=== PATIENT | male | born 1970 | race American Indian/Alaskan Native ===

== ENCOUNTER 2017-02-27 20:20 | Inpatient (IN) | payer SELFPAY ==
[2017-02-27] MEDS ORDERED: ASPIRIN PO ONE (20:48)
[2017-02-27 21:16] LABS: Basophils % (Auto) 0.1 % (0.0-1.8); Eosinophils # (Auto) 0.1 K/mm3 (0.0-0.4); Eosinophils % (Auto) 0.5 % (0.0-4.3); Hematocrit 26.2 % (35.5-45.6); Hemoglobin 9.2 gm/dl (11.8-15.2); Lymphocytes # (Auto) 1.6 K/mm3 (1.2-5.4); Lymphocytes % (Auto) 16.4 % (13.4-35.0); Mean Corpuscular HGB Conc 35 % (32-34); Mean Corpuscular Hemoglobin 47 pg (28-32); Monocytes % (Auto) 10.5 % (0.0-7.3); Platelet Count 328 K/mm3 (140-440); Red Blood Count 1.96 M/mm3 (3.65-5.03); Red Cell Distribution Width 16.6 % (13.2-15.2)
[2017-02-27 21:23] LABS: Mean Corpuscular Volume 134 fl (84-94)
[2017-02-27 21:29] LABS: Hemolysis Index 16
[2017-02-27 21:31] LABS: BUN/Creatinine Ratio 2; Blood Urea Nitrogen < 1 mg/dL (9-20)
[2017-02-27 21:33] LABS: Calcium 5.7 mg/dL (8.4-10.2)
[2017-02-27 21:47] LABS: Chol/HDL Ratio 3.42 %; HDL Cholesterol 38 mg/dL (40-59); LDL Cholesterol,Direct 70 mg/dL (50-130)
[2017-02-27] MEDS ORDERED: K-DUR PO ONE (22:51)
--- NOTE | 2017-02-27 22:59 | Emergency Department Report ---
ED Chest Pain HPI - General Chief Complaint: Chest Pain Stated Complaint: NUMBESS IN FACE,TIGHTNESS CHEST Time Seen by Provider: 02/27/17 22:40 Source: patient Mode of arrival: Ambulatory Limitations: No Limitations - History of Present Illness Initial Comments: This is a 47-year-old male presents to the emergency department with complaints of some chest tightness, facial numbness, cramping and discomfort in the legs, and sharp pains in his toes, it has been going on for the past few days. He denies any past medical history other than some alcohol dependence. He says that he drinks just about every day, around 5-6 beers. He denies any history of delirium tremens or withdrawal symptoms. He does not have a primary care physician. He has not taken anything for her symptoms prior to presentation. He denies any shortness of breath, fever, nausea, vomiting or diaphoresis. No recent travel or sick contacts at home. Severity scale (0 -10): 6 - Related Data Allergies Allergy/AdvReac Type Severity Reaction Status Date / Time No Known Allergies Allergy Verified 02/27/17 20:45 Heart Score - HEART Score History: Slightly suspicious EKG: Significant ST-depression Age: 45-65 Risk factors: No known risk factors Troponin: 1-3x normal limit HEART Score: 4 - Critical Actions Critical Actions: 4-6 pts:12-16.6% risk of adverse cardiac event. Should be admitted ED Review of Systems ROS: Stated complaint: NUMBESS IN FACE,TIGHTNESS CHEST Other details as noted in HPI Comment: All other systems reviewed and negative Constitutional: denies: chills, fever Eyes: denies: eye pain, eye discharge, vision change ENT: denies: ear pain, throat pain Respiratory: denies: cough, shortness of breath Cardiovascular: chest pain. denies: palpitations Gastrointestinal: denies: abdominal pain, nausea, diarrhea Genitourinary: denies: urgency, dysuria Musculoskeletal: myalgia. denies: back pain Skin: denies: rash, lesions Neurological: numbness. denies: headache ED Past Medical Hx - Past Medical History Previous Medical History?: Yes - Surgical History Past Surgical History?: Yes - Social History Smoking Status: Never Smoker Substance Use Type: Alcohol ED Physical Exam - General Limitations: No Limitations - Other Other exam information: GENERAL: The patient is well-developed well-nourished. HENT: Normocephalic. Atraumatic. Patient has moist mucous membranes. EYES: Extraocular motions are intact. Pupils equal reactive to light bilaterally. NECK: Supple. Trachea is midline. CHEST/LUNGS: Clear to auscultation. There is no respiratory distress noted. HEART/CARDIOVASCULAR: Regular. There is no tachycardia. There is no murmur. ABDOMEN: Abdomen is soft, nontender. Patient has normal bowel sounds. There is no abdominal distention. SKIN: Skin is warm and dry. NEURO: The patient is awake, alert, and oriented. The patient is cooperative. The patient has no focal neurologic deficits. The patient has normal speech. MUSCULOSKELETAL: There is no tenderness or deformity. There is no limitation range of motion. There is no evidence of acute injury. ED Course Vital Signs 02/27/17 02/27/17 20:45 23:10 Temperature 99.7 F H 99.3 F Pulse Rate 92 H 82 Respiratory 16 16 Rate Blood Pressure 144/84 Blood Pressure 143/90 [Left] O2 Sat by Pulse 97 100 Oximetry LUDY score - Ludy Score Age > 65: (0) No Aspirin use within the Past 7 Days: (0) No 3 or more CAD Risk Factors: (0) No 2 or more Angina events in past 24 hrs: (1) Yes Known CAD with more than 50% Stenosis: (0) No Elevated Cardiac Markers: (1) Yes ST Deviation Greater than 0.5mm: (0) No LUDY Score: 2 ED Medical Decision Making - Lab Data Result diagrams: 02/27/17 20:50 02/27/17 20:50 - EKG Data -: EKG Interpreted by Me EKG shows normal: sinus rhythm, axis, intervals (prolonged QT and QTC intervals) , QRS complexes (LVH), ST-T waves (T-wave inversion to the inferior and lateral leads, mild ST depression to lateral leads V4 through V6. No ST elevation) - EKG Data When compared to previous EKG there are: previous EKG unavailable Interpretation: other (sinus rhythm, prolonged QT and QTC intervals, T-wave inversions to the lateral and inferior leads, ST depressions in V4 through V6. No ST elevation) - Radiology Data Radiology results: image reviewed interpreted by me: Chest x-ray does not show any acute process. There are no pleural effusions, obvious pneumonia and there is no pneumothorax. - Medical Decision Making Patient has multiple complaints. He has multiple electrolyte abnormalities including hypocalcemia, hypokalemia, hypomagnesemia. EKG does not show ST elevation [place] but appears abnormal with some ST depression and T-wave inversions. May be secondary to the electrode abnormalities but may be secondary to his chest pain. First troponins have been elevated but are trending down. He was given potassium and magnesium supplementation. He will be admitted to the hospital for further evaluation and treatment is been accepted for admission by the hospitalist, Dr. Pierre. - Differential Diagnosis [place], electrolyte abnormalities, dehydration, alcohol abuse Critical Care Time: No Critical care attestation.: If time is entered above; I have spent that time in minutes in the direct care of this critically ill patient, excluding procedure time. ED Disposition Clinical Impression: Hypomagnesemia, Hypokalemia, Hypocalcemia, Elevated troponin, Abnormal EKG, Cramping of feet Chest pain Qualifiers: Chest pain type: unspecified Qualified Code(s): R07.9 - Chest pain, unspecified Disposition: OP ADMIT IP TO THIS HOSP Is pt being admited?: Yes Condition: Stable Instructions: Chest Pain (ED) Time of Disposition: 00:15
--- NOTE | 2017-02-27 23:18 | XRay Report ---
FINAL REPORT PROCEDURE: XR CHEST ROUTINE 2V TECHNIQUE: PA and lateral chest radiographs were obtained. CPT 99017 HISTORY: CP COMPARISON: No prior studies are available for comparison. FINDINGS: Heart: Normal. Mediastinum/Vessels: Normal. Lungs/Pleural space: Normal. Bony thorax: No acute osseous abnormality. Other: IMPRESSION: Normal examination.
[2017-02-27] MEDS: KCL 10MEQ/100ML 10 MEQ/100 ML BAG IV SCH (23:42)
[2017-02-27] MEDS ORDERED: NACL 0.9% 500 ML 500 ML ONE (23:44)
[2017-02-27] MEDS ORDERED: MAGNESIUM SULFATE 2GM/50ML 2 GM/50 ML BAG IV ONE (23:55)
[2017-02-28] MEDS: KCL 10MEQ/100ML 10 MEQ/100 ML BAG IV SCH (01:51)
[2017-02-28] MEDS ORDERED: MILK OF MAGNESIA PO PRN (02:01)
[2017-02-28] MEDS ORDERED: TYLENOL PO PRN (02:01)
[2017-02-28] MEDS ORDERED: DULCOLAX PR PRN (02:01)
[2017-02-28] MEDS ORDERED: MORPHINE IV PRN (02:01)
[2017-02-28] MEDS ORDERED: ZOFRAN IV PRN (02:01)
[2017-02-28 03:35] LABS: Creatine Kinase MB 8.3 ng/mL (0.0-4.0)
--- NOTE | 2017-02-28 03:43 | History and Physical Report ---
History of Present Illness Date of examination: 02/28/17 Date of admission: 02/28/17 02:10 History of present illness: 47-year-old man with no medical problem causing emergency room complaints of chest pain. Pain is in the epigastric area which started today, describes a pressure-like sensation, constant, intensity 5/10, nor radiation. Also complaining of left facial numbness. He denies nausea vomiting, shortness breath, diaphoresis or palpitation Review Of Systems: Constitutional: no weight loss Ears, eyes, nose, mouth and throat: no nasal congestion, no nasal discharge, no sinus pressure, blurry vision, diplopia Neck: No neck pain or rigidity. Cardiovascular: No palpitations Respiratory: No shortness of breath, cough Gastrointestinal: No abdominal pain, hematochezia Genitourinary : no dysuria, frequency , hematuria Musculoskeletal: no muscle ache Integumentary: no rash, no pruritis Neurological: no parathesias, focal weakness Endocrine: no cold or heat intolerance, no polyuria or polydipsia Hematologic/Lymphatic: no easy bruising, no easy bleeding, no gland swelling Allergic/Immunologic: no urticaria, no angioedema. PAST MEDICAL HISTORY: None PAST SURGICAL HISTORY: Achilles tendon repair FAMILY HISTORY: Hypertension SOCIAL HISTORY: Drinks at least 6 beers a day, no tobacco, drugs Medications and Allergies Allergies Allergy/AdvReac Type Severity Reaction Status Date / Time No Known Allergies Allergy Verified 02/27/17 20:45 Active Meds: Active Medications Acetaminophen (Tylenol) 650 mg PO Q4H PRN PRN Reason: Pain MILD(1-3)/Fever >100.5/[place] Bisacodyl (Dulcolax) 10 mg CA QDAY PRN PRN Reason: Constipation unrelieved by MOM Enoxaparin Sodium (Lovenox) 40 mg SUB-Q QDAY@1000 JACY Magnesium Hydroxide (Milk Of Magnesia) 30 ml PO Q4H PRN PRN Reason: Constipation Morphine Sulfate (Morphine) 2 mg IV Q4H PRN PRN Reason: Pain, Moderate (4-6) Ondansetron HCl (Zofran) 4 mg IV Q8H PRN PRN Reason: N/V unrelieved by Reglan Exam - Physical Exam Narrative exam: Gen. appearance: Patient lying in bed in no acute distress HEENT: Normocephalic/atraumatic, pupils equal round reactive to light, extra occular movement intact, no scleral icterus, no JVD or thyromegaly or nodule, neck is supple, mucous membrane moist, no erythema or exudate Heart: S1-S2, regular rate and rhythm Lungs: Clear to auscultation bilateral breathing comfortable Abdomen: Positive bowel sounds, nontender, nondistended, no organomegaly Extremities: No edema, cyanosis, clubbing Neuro:: Oriented 3 , cranial nerves II-12 intact, speech, motor intact Skin: No rash, nodules, warm dry - Constitutional Vitals: Temp Pulse Resp BP Pulse Ox 99.3 F 80 23 127/74 98 02/27/17 23:10 02/28/17 03:15 02/28/17 03:15 02/28/17 03:15 02/28/17 03:15 Results - Labs CBC & Chem 7: 02/27/17 20:50 02/27/17 20:50 Labs: Abnormal lab results 02/27/17 02/27/17 02/27/17 Range/Units 20:50 20:50 23:14 RBC 1.96 L (3.65-5.03) M/mm3 Hgb 9.2 L (11.8-15.2) gm/dl Hct 26.2 L (35.5-45.6) % MCV 134 H (84-94) fl MCH 47 H (28-32) pg MCHC 35 H (32-34) % RDW 16.6 H (13.2-15.2) % [place] % (Auto) 10.5 H (0.0-7.3) % [place]ance # 1.0 H (0.0-0.8) K/mm3 Seg Neutrophils % 72.5 H (40.0-70.0) % Potassium 2.2 L* (3.6-5.0) mmol/L Chloride 86.4 L (98-107) mmol/L Carbon Dioxide 38 H (22-30) mmol/L BUN < 1 L (9-20) mg/dL Creatinine 0.6 L (0.8-1.5) mg/dL Glucose 103 H (75-100) mg/dL Calcium 5.7 L* (8.4-10.2) mg/dL Magnesium (1.7-2.3) mg/dL CK-MB (CK-2) (0.0-4.0) ng/mL Troponin T 0.035 H 0.031 H (0.00-0.029) ng/mL HDL Cholesterol 38 L (40-59) mg/dL 02/27/17 02/28/17 Range/Units 23:14 02:14 RBC (3.65-5.03) M/mm3 Hgb (11.8-15.2) gm/dl Hct (35.5-45.6) % MCV (84-94) fl MCH (28-32) pg MCHC (32-34) % RDW (13.2-15.2) % Nance % (Auto) (0.0-7.3) % Nance # (0.0-0.8) K/mm3 Seg Neutrophils % (40.0-70.0) % Potassium (3.6-5.0) mmol/L Chloride (98-107) mmol/L Carbon Dioxide (22-30) mmol/L BUN (9-20) mg/dL Creatinine (0.8-1.5) mg/dL Glucose (75-100) mg/dL Calcium (8.4-10.2) mg/dL Magnesium 0.60 L* (1.7-2.3) mg/dL CK-MB (CK-2) 8.3 H (0.0-4.0) ng/mL Troponin T 0.032 H (0.00-0.029) ng/mL HDL Cholesterol (40-59) mg/dL - Imaging and Cardiology EKG: image reviewed Chest x-ray: image reviewed Assessment and Plan Assessment Chest pain, rule out ACS Severe hypokalemia Severe hypomagnesemia Low-grade fever Alcohol abuse Plan Admit to medicine Check cardiac enzymes,d-dimer, obtain stress test Repeat potassium, magnesium, check UA, blood cultures Start CIWA protocol with IV Ativan DVT prophylaxis
[2017-02-28] MEDS ORDERED: K-DUR PO ONE ×4 (03:44→14:23)
[2017-02-28] MEDS ORDERED: MAGNESIUM SULFATE 2GM/50ML 2 GM/50 ML BAG IV ONE ×2 (09:00→15:22)
[2017-02-28 09:20] LABS: Hemolysis Index 26
[2017-02-28 09:22] LABS: BUN/Creatinine Ratio 2; Blood Urea Nitrogen < 1 mg/dL (9-20)
[2017-02-28 09:26] LABS: Creatine Kinase MB 7.7 ng/mL (0.0-4.0)
[2017-02-28] MEDS ORDERED: LOVENOX SUB-Q SCH ×2 (10:00)
[2017-02-28 11:07] LABS: Hemolysis Index 4
[2017-02-28 11:11] LABS: BUN/Creatinine Ratio 2; Blood Urea Nitrogen < 1 mg/dL (9-20)
--- NOTE | 2017-02-28 14:34 | Progress Note ---
Assessment and Plan Assessment and plan: Patient is 47 yo man with a history of bilateral hearing loss with hearing aids in place who takes herbal medications. He started Ginkgo Biloba 2-3 days ago, vitamin B12. He has been off [place]'s Wort for over a month. He presented with chest pains. His magnesium was 0.6, potassium 2.2, CPK 18917. Patient denies any nausea vomiting or trauma. -Severe hypokalemia -Severe hypomagnesemia -Rhabdomyolysis, nontraumatic -Chest pain, atypical Plan: Replace potassium Replace magnesium Start Isotonic normal saline IV fluids with potassium additives Repeat potassium magnesium Serial CPKs Stress test once stable Consultation nephrology The high probability of a clinically significant, sudden or life threatening deterioration of the [neurologic,cardiac] system(s) required my full and direct attention, intervention and personal management. The aggregate critical care time was [36 ] minutes. This time is in addition to time spent performing reported procedures but includes the following: [x] Data Review and interpretation [x] Patient assessment and monitoring of vital signs [x] Documentation [x] Medication orders and management History Interval history: Patient was seen and examined. Follow-up on current diagnosis. Overnight uneventful. Patient denies any chest pain, shortness breath, nausea/vomiting or severe headaches. Imaging, nursing note, chart, labs and old chart reviewed. Discussed with patient. Hospitalist Physical - Physical exam Narrative exam: GEN: WDWN, NAD, AWAKE, ALERT, ORIENTATED 3 HEENT: NCAT, EOMI, PERRL, OP Clear NECK: supple, no adenopathy, no thyromegaly, no JVD CVS/HEART: RRR, NORMAL S1S2, NO JVD, pulses present bilaterally CHEST/LUNGS: CTA B, Symmetrical chest expansion, good air entry bilaterally GI/Abdomen: soft, NTND, good bowel sounds, no guarding or rebound /Bladder: no suprapubic tenderness, no CVA or paraspinal tenderness EXT/Skin: no c/c/e, no obvious rash MSK: FROM x 4 Neuro: CN 2-12 grossly intact except hearing, no new focal deficits Psych: calm - Constitutional Vitals: Temp Pulse Resp BP Pulse Ox 99.3 F 91 H 20 122/82 95 02/28/17 09:58 02/28/17 09:58 02/28/17 09:58 02/28/17 09:58 02/28/17 09:58 Results - Labs CBC & Chem 7: 02/27/17 20:50 02/28/17 10:13 Labs: Laboratory Last Values WBC 9.7 K/mm3 (4.5-11.0) 02/27/17 20:50 RBC 1.96 M/mm3 (3.65-5.03) L 02/27/17 20:50 Hgb 9.2 gm/dl (11.8-15.2) L 02/27/17 20:50 Hct 26.2 % (35.5-45.6) L 02/27/17 20:50 MCV 134 fl (84-94) H 02/27/17 20:50 MCH 47 pg (28-32) H 02/27/17 20:50 MCHC 35 % (32-34) H 02/27/17 20:50 RDW 16.6 % (13.2-15.2) H 02/27/17 20:50 Plt Count 328 K/mm3 (140-440) 02/27/17 20:50 Lymph % (Auto) 16.4 % (13.4-35.0) 02/27/17 20:50 [place] % (Auto) 10.5 % (0.0-7.3) H 02/27/17 20:50 Eos % (Auto) 0.5 % (0.0-4.3) 02/27/17 20:50 Baso % (Auto) 0.1 % (0.0-1.8) 02/27/17 20:50 Lymph # 1.6 K/mm3 (1.2-5.4) 02/27/17 20:50 [place] # 1.0 K/mm3 (0.0-0.8) H 02/27/17 20:50 Eos # 0.1 K/mm3 (0.0-0.4) 02/27/17 20:50 Baso # 0.0 K/mm3 (0.0-0.1) 02/27/17 20:50 Seg Neutrophils % 72.5 % (40.0-70.0) H 02/27/17 20:50 Seg Neutrophils # 7.0 K/mm3 (1.8-7.7) 02/27/17 20:50 D-Dimer < 135 ng/mlDDU (0-234) 02/28/17 07:57 Sodium 147 mmol/L (137-145) H 02/28/17 10:13 Potassium 2.1 mmol/L (3.6-5.0) L* 02/28/17 10:13 Chloride 93.4 mmol/L (98-107) L 02/28/17 10:13 Carbon Dioxide 38 mmol/L (22-30) H 02/28/17 10:13 Anion Gap 18 mmol/L 02/28/17 10:13 BUN < 1 mg/dL (9-20) L 02/28/17 10:13 Creatinine 0.6 mg/dL (0.8-1.5) L 02/28/17 10:13 Estimated GFR > 60 ml/min 02/28/17 10:13 BUN/Creatinine Ratio 2 % 02/28/17 10:13 Glucose 95 mg/dL (75-100) 02/28/17 10:13 Calcium 6.0 mg/dL (8.4-10.2) L 02/28/17 10:13 Magnesium 0.60 mg/dL (1.7-2.3) L* 02/27/17 23:14 Total Creatine Kinase 50099 units/L (55-170) H 02/28/17 07:57 CK-MB (CK-2) 7.7 ng/mL (0.0-4.0) H 02/28/17 07:57 CK-MB (CK-2) Rel Index 0.0 (0-4) 02/28/17 07:57 Troponin T 0.043 ng/mL (0.00-0.029) H D 02/28/17 07:57 Triglycerides 112 mg/dL (2-149) 02/27/17 20:50 Cholesterol 130 mg/dL (50-199) 02/27/17 20:50 LDL Cholesterol Direct 70 mg/dL (50-130) 02/27/17 20:50 HDL Cholesterol 38 mg/dL (40-59) L 02/27/17 20:50 Cholesterol/HDL Ratio 3.42 % 02/27/17 20:50
[2017-02-28] MEDS ORDERED: HALDOL IV PRN (14:42)
[2017-02-28] MEDS ORDERED: ATIVAN IV PRN ×3 (14:42)
[2017-02-28] MEDS ORDERED: NS/KCL 20MEQ 20 MEQ/1,000 ML BAG IV SCH (15:00)
[2017-02-28] MEDS ORDERED: NACL 0.9% 1000 ML 1,000 ML with KCL 20 MEQ IV SCH (15:00)
[2017-02-28] MEDS: K-DUR PO SCH ×4 (16:56→22:59)
--- NOTE | 2017-02-28 18:28 | Consultation ---
History of Present Illness - Reason for Consult Consult date: 02/28/17 hypernatremia, hypokalemia Requesting physician: LARA CONNORS - History of Present Illness This is a 47-year-old man with no medical problem causing emergency room complaints of chest pain. Pain is in the epigastric area which started today, Also complaining of frequent episodes of diarrhea/loose BMs for the last few weeks. He denies fever, chills, nausea vomiting, shortness breath, diaphoresis or palpitation, dysuria. labs showed significant electrolyte imbalance incl. hypokalemia, hypomagnesemia and hypernatremia for which renal consult is requested. pt denies recent diuretic use, illicit drug abuse, however reports that he drinks just about every day, around 5-6 beers also has been recently taking gingko bilboa. pt also found to have significant rhabdomyolysis with CK > [address]. pt denies recent heavy exercise or significant muscle pain. Past History Past Medical History: No medical history Past Surgical History: No surgical history Social history: no significant social history. denies: smoking, alcohol abuse, prescription drug abuse, IV drug use Family history: no significant family history Medications and Allergies Allergies Allergy/AdvReac Type Severity Reaction Status Date / Time No Known Allergies Allergy Verified 02/27/17 20:45 Active Meds: Active Medications Acetaminophen (Tylenol) 650 mg PO Q4H PRN PRN Reason: Pain MILD(1-3)/Fever >100.5/[place]LIN Haloperidol Lactate (Haldol) 5 mg IV Q1H PRN PRN Reason: Unrespon. to mult. doses BZD's Potassium Chloride/Sodium Chloride (Ns/Kcl 20meq) 20 meq in 1,000 mls @ 125 mls /hr IV DIRECT JACY Lorazepam (Ativan) 2 mg IV Q1H PRN PRN Reason: CIWA-Ar 8-15 Lorazepam (Ativan) 4 mg IV Q1H PRN PRN Reason: CIWA-Ar 16-25 Lorazepam (Ativan) 4 mg IV Q15MIN PRN PRN Reason: CIWA-Ar >25 Magnesium Hydroxide (Milk Of Magnesia) 30 ml PO Q4H PRN PRN Reason: Constipation Morphine Sulfate (Morphine) 2 mg IV Q4H PRN PRN Reason: Pain, Moderate (4-6) Potassium Chloride (K-Dur) 40 meq PO Q2H JACY Last Admin: 02/28/17 18:17 Dose: 40 meq Review of Systems All systems: negative Constitutional: weakness, malaise Gastrointestinal: abdominal pain, diarrhea Exam - Vital Signs Vital signs: Vital Signs Temp Pulse Resp BP Pulse Ox 99.7 F H 92 H 16 144/84 97 02/27/17 20:45 02/27/17 20:45 02/27/17 20:45 02/27/17 20:45 02/27/17 20:45 - General Appearance General appearance: well-developed, well-nourished, appears stated age EENT: ATNC, PERRL, mucous membranes moist Neck: Present: neck supple Respiratory: Clear to Ascultation Heart: regular, S1S2 Gastrointestinal: Present: normoactive bowel sounds Integumentary: no rash, other (no edema ) Neurologic: no focal deficit, alert and oriented x3, strength 5/5, CN 3-12 intact Psychiatric: mood/affect appropriate, cooperative Results - Lab Results 02/27/17 20:50 02/28/17 10:13 Most recent lab results Calcium 6.0 mg/dL (8.4-10.2) L 02/28/17 10:13 Magnesium 0.60 mg/dL (1.7-2.3) L* 02/27/17 23:14 Laboratory Tests 02/27/17 02/28/17 02/28/17 20:50 02:14 07:57 Total Creatine Kinase 42526 H 83138 H CK-MB (CK-2) 8.3 H 7.7 H CK-MB (CK-2) Rel Index 0.0 0.0 Troponin T 0.035 H 0.032 H Triglycerides 112 Cholesterol 130 LDL Cholesterol Direct 70 HDL Cholesterol 38 L Cholesterol/HDL Ratio 3.42 Assessment and Plan - Patient Problems (1) Rhabdomyolysis Current Visit: Yes Status: Acute Plan to address problem: cont IVF with NS at 125ml/hr, check serial CPKs. Etiology of rhabdo unclear, possibly due to chronic hypokalemia? (2) Hypokalemia Current Visit: Yes Status: Acute Plan to address problem: most likely due to chronic diarrhea/GI loss. however will check TTKG to rule out renal wasting and also check urine AG. cont aggressive K supplementation with KCl/KDur to target K >4. Mg supplementation ongoing. (3) Hypomagnesemia Current Visit: Yes Status: Acute Plan to address problem: cont Mg supplementation (4) Hypocalcemia Current Visit: Yes Status: Acute Plan to address problem: start ca gluconate 2g IVSS
[2017-02-28] MEDS ORDERED: CALCIUM GLUCONATE 2,000 MG in NACL 0.9% 100 ML IV ONE (18:38)
[2017-02-28] MEDS ORDERED: CALCIUM CHLORIDE 2,000 MG in NACL 0.9% 100 ML IV ONE (20:00)
[2017-02-28 23:10] LABS: Bacteria,Urine 1+ /HPF (Negative); Bilirubin,Urine NEG (Negative); Blood,Urine MOD (Negative); Color,Urine Yellow (Yellow); Creatinine,Urine 82.5 mg/dL (0.1-20.0); Mucus,Urine FEW /HPF; Nitrite,Urine NEG (Negative); Potassium, Urine 7.4 mmol/L; Protein,Urine <15 mg/dL mg/dL (Negative)
[2017-03-01] MEDS: K-DUR PO SCH ×4 (00:58→06:48)
[2017-03-01 06:40] LABS: Basophils % (Auto) 0.3 % (0.0-1.8); Eosinophils # (Auto) 0.1 K/mm3 (0.0-0.4); Eosinophils % (Auto) 1.5 % (0.0-4.3); Hemoglobin 8.4 gm/dl (11.8-15.2); Lymphocytes # (Auto) 1.2 K/mm3 (1.2-5.4); Lymphocytes % (Auto) 17.7 % (13.4-35.0); Mean Corpuscular HGB Conc 35 % (32-34); Mean Corpuscular Hemoglobin 48 pg (28-32); Monocytes # (Auto) 0.9 K/mm3 (0.0-0.8); Monocytes % (Auto) 12.6 % (0.0-7.3); Platelet Count 330 K/mm3 (140-440); Red Blood Count 1.75 M/mm3 (3.65-5.03); Red Cell Distribution Width 16.1 % (13.2-15.2)
[2017-03-01 06:48] LABS: Mean Corpuscular Volume 137 fl (84-94)
[2017-03-01 07:29] LABS: Alanine Aminotransferase 60 units/L (7-56); Calcium 6.9 mg/dL (8.4-10.2); Hemolysis Index 5
[2017-03-01 07:31] LABS: Magnesium 1.7 mg/dL (1.7-2.3)
[2017-03-01 07:33] LABS: BUN/Creatinine Ratio 2; Blood Urea Nitrogen < 1 mg/dL (9-20)
[2017-03-01] MEDS ORDERED: K-DUR PO ONE (08:31)
--- NOTE | 2017-03-01 09:26 | Progress Note ---
Assessment and Plan - Patient Problems (1) Rhabdomyolysis Current Visit: Yes Status: Acute Plan to address problem: switch IVF to D5 1/2 NS + Kcl at 150mlhr given hypernatremia. check serial CPKs. Etiology of rhabdo unclear, possibly due to chronic hypokalemia? (2) Hypokalemia Current Visit: Yes Status: Acute Plan to address problem: most likely due to chronic diarrhea/GI loss. TTKG however >6, renal wasting in the setting of hypomagnesemia may contribute to hypokalemia. cont aggressive K/ Mg supplementation with KCl/KDur to target K >4. Mg supplementation ongoing. (3) Hypomagnesemia Current Visit: Yes Status: Acute Plan to address problem: improved (4) Hypocalcemia Current Visit: Yes Status: Acute Plan to address problem: given Ca chloride 2g IVSS, improving Subjective Date of service: 03/01/17 Principal diagnosis: hypokalemia Interval history: Pt awake, alert, in NAD Objective - Vital Signs Vital signs: Vital Signs - 12hr 02/28/17 02/28/17 03/01/17 22:00 23:49 03:00 Temperature 98.6 F Pulse Rate 87 80 Respiratory 20 Rate Blood Pressure 136/85 O2 Sat by Pulse 99 98 Oximetry 03/01/17 04:59 Temperature 99.1 F Pulse Rate 84 Respiratory 18 Rate Blood Pressure 138/91 O2 Sat by Pulse 97 Oximetry - General Appearance General appearance: well-developed, well-nourished, appears stated age EENT: ATNC, PERRL, mucous membranes moist Neck: no JVD Respiratory: Present: Clear to Ascultation Cardiology: regular, S1S2 Gastrointestinal: normoactive bowel sounds Integumentary: no rash, other (no edema ) Neurologic: no focal deficit, alert and oriented x3, strength 5/5, CN 3-12 intact Psychiatric: mood/affect appropriate, cooperative - Lab 03/01/17 06:04 03/01/17 06:04 Most recent lab results Calcium 6.9 mg/dL (8.4-10.2) L 03/01/17 06:04 Magnesium 1.70 mg/dL (1.7-2.3) 03/01/17 06:04 Urine Creatinine 82.5 mg/dL (0.1-20.0) H 02/28/17 Unknown Urine Sodium 40 mmol/L 02/28/17 Unknown
[2017-03-01] MEDS: D5W/0.45% NACL/KCL 20 MEQ 20 MEQ/1,000 ML BAG IV SCH ×2 (10:46→18:10)
--- NOTE | 2017-03-01 13:30 | Progress Note ---
Assessment and Plan Assessment and plan: Patient is 47 yo man with a history of alcohol abuse and bilateral hearing loss with hearing aids in place who takes herbal medications. He started Ginkgo Biloba 2-3 days ago, vitamin B12. He has been off [place] Wort for over a month. He presented with chest pains. His magnesium was 0.6, potassium 2.2, CPK 30468. Patient denies any nausea vomiting or trauma. -Severe hypokalemia -Severe hypomagnesemia -Rhabdomyolysis, nontraumatic -Chest pain, atypical -Alcohol abuse, on ciwa, no signs of withdrawal at this time. Plan: Replace potassium Replace magnesium Start Isotonic normal saline IV fluids with potassium additives Repeat potassium magnesium Serial CPKs Stress test once stable Consultation nephrology He is currently threatening leave AMA, new job starts Friday. Counseling done. Stress to hold until CPK levels and rhabdomyolysis improves History Interval history: Patient was seen and examined. Follow-up on current diagnosis. Overnight uneventful. Patient denies any chest pain, shortness breath, nausea/vomiting or severe headaches. Imaging, nursing note, chart, labs and old chart reviewed. Discussed with patient. Hospitalist Physical - Physical exam Narrative exam: GEN: WDWN, NAD, AWAKE, ALERT, ORIENTATED 3 HEENT: NCAT, EOMI, PERRL, OP Clear NECK: supple, no adenopathy, no thyromegaly, no JVD CVS/HEART: RRR, NORMAL S1S2, NO JVD, pulses present bilaterally CHEST/LUNGS: CTA B, Symmetrical chest expansion, good air entry bilaterally GI/Abdomen: soft, NTND, good bowel sounds, no guarding or rebound /Bladder: no suprapubic tenderness, no CVA or paraspinal tenderness EXT/Skin: no c/c/e, no obvious rash MSK: FROM x 4 Neuro: CN 2-12 grossly intact except hearing, no new focal deficits Psych: calm - Constitutional Vitals: Temp Pulse Resp BP Pulse Ox 97.7 F 82 20 148/99 100 03/01/17 12:50 03/01/17 12:50 03/01/17 12:50 03/01/17 12:50 03/01/17 12:50 Results - Labs CBC & Chem 7: 03/01/17 06:04 03/01/17 06:04 Labs: Laboratory Last Values WBC 6.9 K/mm3 (4.5-11.0) 03/01/17 06:04 RBC 1.75 M/mm3 (3.65-5.03) L 03/01/17 06:04 Hgb 8.4 gm/dl (11.8-15.2) L 03/01/17 06:04 Hct 24.0 % (35.5-45.6) L 03/01/17 06:04 MCV 137 fl (84-94) H 03/01/17 06:04 MCH 48 pg (28-32) H 03/01/17 06:04 MCHC 35 % (32-34) H 03/01/17 06:04 RDW 16.1 % (13.2-15.2) H 03/01/17 06:04 Plt Count 330 K/mm3 (140-440) 03/01/17 06:04 Lymph % (Auto) 17.7 % (13.4-35.0) 03/01/17 06:04 [place] % (Auto) 12.6 % (0.0-7.3) H 03/01/17 06:04 Eos % (Auto) 1.5 % (0.0-4.3) 03/01/17 06:04 Baso % (Auto) 0.3 % (0.0-1.8) 03/01/17 06:04 Lymph # 1.2 K/mm3 (1.2-5.4) 03/01/17 06:04 [place] # 0.9 K/mm3 (0.0-0.8) H 03/01/17 06:04 Eos # 0.1 K/mm3 (0.0-0.4) 03/01/17 06:04 Baso # 0.0 K/mm3 (0.0-0.1) 03/01/17 06:04 Seg Neutrophils % 67.9 % (40.0-70.0) 03/01/17 06:04 Seg Neutrophils # 4.7 K/mm3 (1.8-7.7) 03/01/17 06:04 D-Dimer < 135 ng/mlDDU (0-234) 02/28/17 07:57 Sodium 149 mmol/L (137-145) H 03/01/17 06:04 Potassium 3.4 mmol/L (3.6-5.0) L D 03/01/17 06:04 Chloride 103.4 mmol/L (98-107) 03/01/17 06:04 Carbon Dioxide 35 mmol/L (22-30) H 03/01/17 06:04 Anion Gap 14 mmol/L 03/01/17 06:04 BUN < 1 mg/dL (9-20) L 03/01/17 06:04 Creatinine 0.5 mg/dL (0.8-1.5) L 03/01/17 06:04 Estimated GFR > 60 ml/min 03/01/17 06:04 BUN/Creatinine Ratio 2 % 03/01/17 06:04 Glucose 98 mg/dL (75-100) 03/01/17 06:04 Osmolality 315 Mosm/kg 03/01/17 06:04 Calcium 6.9 mg/dL (8.4-10.2) L 03/01/17 06:04 Magnesium 1.70 mg/dL (1.7-2.3) 03/01/17 06:04 Total Bilirubin 1.50 mg/dL (0.1-1.2) H 03/01/17 06:04 AST 201 units/L (5-40) H 03/01/17 06:04 ALT 60 units/L (7-56) H 03/01/17 06:04 Alkaline Phosphatase 65 units/L (35-129) 03/01/17 06:04 Total Creatine Kinase 27036 units/L (55-170) H 03/01/17 06:04 CK-MB (CK-2) 7.7 ng/mL (0.0-4.0) H 02/28/17 07:57 CK-MB (CK-2) Rel Index 0.0 (0-4) 02/28/17 07:57 Troponin T 0.043 ng/mL (0.00-0.029) H D 02/28/17 07:57 Total Protein 5.1 g/dL (6.3-8.2) L 03/01/17 06:04 Albumin 3.0 g/dL (3.9-5) L 03/01/17 06:04 Albumin/Globulin Ratio 1.4 % 03/01/17 06:04 Triglycerides 112 mg/dL (2-149) 02/27/17 20:50 Cholesterol 130 mg/dL (50-199) 02/27/17 20:50 LDL Cholesterol Direct 70 mg/dL (50-130) 02/27/17 20:50 HDL Cholesterol 38 mg/dL (40-59) L 02/27/17 20:50 Cholesterol/HDL Ratio 3.42 % 02/27/17 20:50 Urine Color Yellow (Yellow) 02/28/17 Unknown Urine Turbidity Clear (Clear) 02/28/17 Unknown Urine pH 6.0 (5.0-7.0) 02/28/17 Unknown Ur Specific [place] 1.006 (1.003-1.030) 02/28/17 Unknown Urine Protein <15 mg/dl mg/dL (Negative) 02/28/17 Unknown Urine Glucose (UA) Neg mg/dL (Negative) 02/28/17 Unknown Urine Ketones Neg mg/dL (Negative) 02/28/17 Unknown Urine Blood Mod (Negative) 02/28/17 Unknown Urine Nitrite Neg (Negative) 02/28/17 Unknown Urine Bilirubin Neg (Negative) 02/28/17 Unknown Urine Urobilinogen 4.0 mg/dL (<2.0) 02/28/17 Unknown Ur Leukocyte Esterase Neg (Negative) 02/28/17 Unknown Urine WBC (Auto) 0.0 /HPF (0.0-6.0) 02/28/17 Unknown Urine RBC (Auto) 1.0 /HPF (0.0-6.0) 02/28/17 Unknown Urine Bacteria (Auto) 1+ /HPF (Negative) 02/28/17 Unknown Urine Mucus Few /HPF 02/28/17 Unknown Urine Osmolality 164 Mosm/kg 02/28/17 Unknown Urine Creatinine 82.5 mg/dL (0.1-20.0) H 02/28/17 Unknown Urine Sodium 40 mmol/L 02/28/17 Unknown Urine Potassium 7.40 mmol/L 02/28/17 Unknown Urine Chloride 17.8 mmolL (110-250) L 02/28/17 Unknown
--- NOTE | 2017-03-01 13:34 | Discharge Summary ---
Providers - Providers Date of Admission: 02/28/17 02:10 Date of discharge: 03/02/17 Attending physician: LARA CONNORS 02/28/17 14:36 Consult to Physician [CONS] Routine Consulting Provider: JAY BAUER Reason For Exam: severe electrolyte imbalance, rhabdo Place consult to:: Dr. Bauer Notified:: Sofía GREENBERG Phone number called:: Was contact made?: Yes If yes, spoke with:: Jazmín-office Time called:: 16:09 Primary care physician: LATONIA SCOTT Hospitalization Condition: Stable Hospital course: Patient is 47 yo man with a history of alcohol abuse and bilateral hearing loss with hearing aids in place who takes herbal medications. He started Ginkgo Biloba 2-3 days ago, vitamin B12. He has been off [place] Wort for over a month. He presented with chest pains. His magnesium was 0.6, potassium 2.2, CPK 37605. Patient denies any nausea vomiting or trauma. -Severe hypokalemia -Severe hypomagnesemia -Rhabdomyolysis, nontraumatic -Chest pain, atypical -Alcohol abuse, on ciwa, no signs of withdrawal at this time. Plan: Replace potassium Replace magnesium Start Isotonic normal saline IV fluids with potassium additives Repeat potassium magnesium Serial CPKs Stress test once stable Consultation nephrology He is currently threatening leave , new job starts Friday. Counseling done. Stress to hold until CPK levels and rhabdomyolysis improves Disposition: DC-07 LEFT AGAINST MED ADVICE Time spent for discharge: 35 min Core Measure Documentation - Palliative Care Palliative Care/ Comfort Measures: Not Applicable - Core Measures Any of the following diagnoses?: none - VTE Discharge Requirements Deep Vein Thrombosis/Pulmonary Embolism Present on Admission: No Has pt received <5 days of overlap therapy or INR<2.0: No Anticoagulant overlap therapy prescribed at discharge: No Contraindication No Overlap Therapy order at DC: Not Indicated Exam - Physical Exam Narrative exam: GEN: WDWN, NAD, AWAKE, ALERT, ORIENTATED 3 HEENT: NCAT, EOMI, PERRL, OP Clear NECK: supple, no adenopathy, no thyromegaly, no JVD CVS/HEART: RRR, NORMAL S1S2, NO JVD, pulses present bilaterally CHEST/LUNGS: CTA B, Symmetrical chest expansion, good air entry bilaterally GI/Abdomen: soft, NTND, good bowel sounds, no guarding or rebound /Bladder: no suprapubic tenderness, no CVA or paraspinal tenderness EXT/Skin: no c/c/e, no obvious rash MSK: FROM x 4 Neuro: CN 2-12 grossly intact except hearing, no new focal deficits Psych: calm - Constitutional Vitals: Temp Pulse Resp BP Pulse Ox 97.7 F 82 20 148/99 100 03/01/17 12:50 03/01/17 12:50 03/01/17 12:50 03/01/17 12:50 03/01/17 12:50 Plan Activity: other (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 Kendall Donnelly Follow up with: LATONIA SCOTT MD [Primary Care Provider] - 7 Days KENDALL DONNELLY MD [Staff Physician] - 7 Days Prescriptions: RX: Magnesium Oxide [Mag-Ox] 400 mg PO TID #30 day RX: Potassium Chloride 20 meq PO BID #60 tablet.er RX: Thiamine [Vitamin B-1] 100 mg PO QDAY #30 tablet
[2017-03-02 07:49] LABS: Calcium 6.4 mg/dL (8.4-10.2); Hemolysis Index 12
[2017-03-02 08:00] LABS: BUN/Creatinine Ratio 2; Blood Urea Nitrogen < 1 mg/dL (9-20)
[2017-03-02 09:02] VITALS: BP 165/97
[2017-03-02] MEDS ORDERED: K-DUR PO ONE ×2 (10:00→16:00)
--- NOTE | 2017-03-02 10:09 | Progress Note ---
Assessment and Plan - Patient Problems (1) Rhabdomyolysis Current Visit: Yes Status: Acute Plan to address problem: recommend IVF to D5 1/2 NS + Kcl at 150ml/hr, check serial CPKs. Etiology of rhabdo unclear, possibly due to chronic hypokalemia? pt instructed to increase oral hydration to increase Urine output > 2-3L/day given persistently elevated CPK (2) Hypokalemia Current Visit: Yes Status: Acute Plan to address problem: most likely due to chronic diarrhea/GI loss. TTKG however >6, renal wasting in the setting of hypomagnesemia may contribute to hypokalemia. cont aggressive K/ Mg supplementation with KCl/KDur to target K >4. Mg supplementation ongoing. (3) Hypomagnesemia Current Visit: Yes Status: Acute Plan to address problem: improved (4) Hypocalcemia Current Visit: Yes Status: Acute Plan to address problem: given Ca chloride 2g IVSS, improving Subjective Date of service: 03/02/17 Principal diagnosis: hypokalemia Interval history: Pt awake, alert, in NAD. states that he has to leave against medical advice due to work. Objective - Vital Signs Vital signs: Vital Signs - 12hr 03/02/17 03/02/17 03/02/17 00:47 00:52 05:49 Temperature 99.2 F 99.2 F Pulse Rate 84 92 H 93 H Respiratory 18 18 Rate Blood Pressure 160/104 149/97 Blood Pressure [Left] O2 Sat by Pulse 98 97 Oximetry 03/02/17 03/02/17 07:46 09:01 Temperature 99.0 F Pulse Rate 73 Respiratory 20 Rate Blood Pressure Blood Pressure 165/97 [Left] O2 Sat by Pulse 99 97 Oximetry - General Appearance General appearance: well-developed, well-nourished, appears stated age EENT: ATNC, PERRL, mucous membranes moist Neck: no JVD Respiratory: Present: Clear to Ascultation Cardiology: regular, S1S2 Gastrointestinal: normoactive bowel sounds Integumentary: no rash, other (no edema ) Neurologic: no focal deficit, alert and oriented x3, strength 5/5, CN 3-12 intact Psychiatric: mood/affect appropriate, cooperative - Lab 03/01/17 06:04 03/02/17 07:07 Most recent lab results Calcium 6.4 mg/dL (8.4-10.2) L 03/02/17 07:07 Magnesium 1.70 mg/dL (1.7-2.3) 03/01/17 06:04 Urine Creatinine 82.5 mg/dL (0.1-20.0) H 02/28/17 Unknown Urine Sodium 40 mmol/L 02/28/17 Unknown
--- NOTE | 2017-03-02 12:56 | Progress Note ---
Assessment and Plan Assessment and plan: Patient is 47 yo man with a history of alcohol abuse and bilateral hearing loss with hearing aids in place who takes herbal medications. He started Ginkgo Biloba 2-3 days ago, vitamin B12. He has been off [place]'s Wort for over a month. He presented with chest pains. His magnesium was 0.6, potassium 2.2, CPK 17458. Patient denies any nausea vomiting or trauma. -Severe hypokalemia -Severe hypomagnesemia -Rhabdomyolysis, nontraumatic -Chest pain, atypical -Alcohol abuse, on ciwa, no signs of withdrawal at this time. Plan: Replace potassium Replace magnesium Start Isotonic normal saline IV fluids with potassium additives Repeat potassium magnesium Serial CPKs Stress test once stable Consultation nephrology He is currently threatening leave AMA, new job starts Friday. Counseling done. Stress to hold until CPK levels and rhabdomyolysis improves replace potassium, his ivf were off, ?how long no IVFs, cpk increased History Interval history: Patient was seen and examined. Follow-up on current diagnosis. Overnight uneventful. Patient denies any chest pain, shortness breath, nausea/vomiting or severe headaches. Imaging, nursing note, chart, labs and old chart reviewed. Discussed with patient. Hospitalist Physical - Physical exam Narrative exam: GEN: WDWN, NAD, AWAKE, ALERT, ORIENTATED 3 HEENT: NCAT, EOMI, PERRL, OP Clear NECK: supple, no adenopathy, no thyromegaly, no JVD CVS/HEART: RRR, NORMAL S1S2, NO JVD, pulses present bilaterally CHEST/LUNGS: CTA B, Symmetrical chest expansion, good air entry bilaterally GI/Abdomen: soft, NTND, good bowel sounds, no guarding or rebound /Bladder: no suprapubic tenderness, no CVA or paraspinal tenderness EXT/Skin: no c/c/e, no obvious rash MSK: FROM x 4 Neuro: CN 2-12 grossly intact except hearing, no new focal deficits Psych: calm - Constitutional Vitals: Temp Pulse Resp BP Pulse Ox 99.0 F 73 20 165/97 97 03/02/17 09:01 03/02/17 09:01 03/02/17 09:01 03/02/17 09:01 03/02/17 09:01 Results - Labs CBC & Chem 7: 03/01/17 06:04 03/02/17 07:07 Labs: Laboratory Last Values WBC 6.9 K/mm3 (4.5-11.0) 03/01/17 06:04 RBC 1.75 M/mm3 (3.65-5.03) L 03/01/17 06:04 Hgb 8.4 gm/dl (11.8-15.2) L 03/01/17 06:04 Hct 24.0 % (35.5-45.6) L 03/01/17 06:04 MCV 137 fl (84-94) H 03/01/17 06:04 MCH 48 pg (28-32) H 03/01/17 06:04 MCHC 35 % (32-34) H 03/01/17 06:04 RDW 16.1 % (13.2-15.2) H 03/01/17 06:04 Plt Count 330 K/mm3 (140-440) 03/01/17 06:04 Lymph % (Auto) 17.7 % (13.4-35.0) 03/01/17 06:04 [place] % (Auto) 12.6 % (0.0-7.3) H 03/01/17 06:04 Eos % (Auto) 1.5 % (0.0-4.3) 03/01/17 06:04 Baso % (Auto) 0.3 % (0.0-1.8) 03/01/17 06:04 Lymph # 1.2 K/mm3 (1.2-5.4) 03/01/17 06:04 [place] # 0.9 K/mm3 (0.0-0.8) H 03/01/17 06:04 Eos # 0.1 K/mm3 (0.0-0.4) 03/01/17 06:04 Baso # 0.0 K/mm3 (0.0-0.1) 03/01/17 06:04 Seg Neutrophils % 67.9 % (40.0-70.0) 03/01/17 06:04 Seg Neutrophils # 4.7 K/mm3 (1.8-7.7) 03/01/17 06:04 D-Dimer < 135 ng/mlDDU (0-234) 02/28/17 07:57 Sodium 145 mmol/L (137-145) 03/02/17 07:07 Potassium 3.0 mmol/L (3.6-5.0) L 03/02/17 07:07 Chloride 101.7 mmol/L (98-107) 03/02/17 07:07 Carbon Dioxide 28 mmol/L (22-30) D 03/02/17 07:07 Anion Gap 18 mmol/L 03/02/17 07:07 BUN < 1 mg/dL (9-20) L 03/02/17 07:07 Creatinine 0.5 mg/dL (0.8-1.5) L 03/02/17 07:07 Estimated GFR > 60 ml/min 03/02/17 07:07 BUN/Creatinine Ratio 2 % 03/02/17 07:07 Glucose 103 mg/dL (75-100) H 03/02/17 07:07 Osmolality 315 Mosm/kg 03/01/17 06:04 Calcium 6.4 mg/dL (8.4-10.2) L 03/02/17 07:07 Magnesium 1.70 mg/dL (1.7-2.3) 03/01/17 06:04 Total Bilirubin 1.50 mg/dL (0.1-1.2) H 03/01/17 06:04 AST 201 units/L (5-40) H 03/01/17 06:04 ALT 60 units/L (7-56) H 03/01/17 06:04 Alkaline Phosphatase 65 units/L (35-129) 03/01/17 06:04 Total Creatine Kinase 60658 units/L (55-170) H 03/02/17 07:07 CK-MB (CK-2) 7.7 ng/mL (0.0-4.0) H 02/28/17 07:57 CK-MB (CK-2) Rel Index 0.0 (0-4) 02/28/17 07:57 Troponin T 0.043 ng/mL (0.00-0.029) H D 02/28/17 07:57 Total Protein 5.1 g/dL (6.3-8.2) L 03/01/17 06:04 Albumin 3.0 g/dL (3.9-5) L 03/01/17 06:04 Albumin/Globulin Ratio 1.4 % 03/01/17 06:04 Triglycerides 112 mg/dL (2-149) 02/27/17 20:50 Cholesterol 130 mg/dL (50-199) 02/27/17 20:50 LDL Cholesterol Direct 70 mg/dL (50-130) 02/27/17 20:50 HDL Cholesterol 38 mg/dL (40-59) L 02/27/17 20:50 Cholesterol/HDL Ratio 3.42 % 02/27/17 20:50 Urine Color Yellow (Yellow) 02/28/17 Unknown Urine Turbidity Clear (Clear) 02/28/17 Unknown Urine pH 6.0 (5.0-7.0) 02/28/17 Unknown Ur Specific [place] 1.006 (1.003-1.030) 02/28/17 Unknown Urine Protein <15 mg/dl mg/dL (Negative) 02/28/17 Unknown Urine Glucose (UA) Neg mg/dL (Negative) 02/28/17 Unknown Urine Ketones Neg mg/dL (Negative) 02/28/17 Unknown Urine Blood Mod (Negative) 02/28/17 Unknown Urine Nitrite Neg (Negative) 02/28/17 Unknown Urine Bilirubin Neg (Negative) 02/28/17 Unknown Urine Urobilinogen 4.0 mg/dL (<2.0) 02/28/17 Unknown Ur Leukocyte Esterase Neg (Negative) 02/28/17 Unknown Urine WBC (Auto) 0.0 /HPF (0.0-6.0) 02/28/17 Unknown Urine RBC (Auto) 1.0 /HPF (0.0-6.0) 02/28/17 Unknown Urine Bacteria (Auto) 1+ /HPF (Negative) 02/28/17 Unknown Urine Mucus Few /HPF 02/28/17 Unknown Urine Osmolality 164 Mosm/kg 02/28/17 Unknown Urine Creatinine 82.5 mg/dL (0.1-20.0) H 02/28/17 Unknown Urine Sodium 40 mmol/L 02/28/17 Unknown Urine Potassium 7.40 mmol/L 02/28/17 Unknown Urine Chloride 17.8 mmolL (110-250) L 02/28/17 Unknown
== END 2017-03-02 11:26 | disposition left against medical advice (07) | DRG 313 ==
LOC: ED 20:20 → 4A 02-28 02:10
PROVIDERS: ADMIT Internal Medicine; ATTEND Internal Medicine
DX: R07.89 Other chest pain (principal); M62.82 Rhabdomyolysis; E83.42 Hypomagnesemia; E87.6 Hypokalemia; E83.51 Hypocalcemia; Z82.49 Family history of ischemic heart disease and other diseases of the circulatory system; F10.10 Alcohol abuse, uncomplicated; Y90.9 Presence of alcohol in blood, level not specified; H91.93 Unspecified hearing loss, bilateral
CPT/HCPCS: 36415; 71046; 80048; 80053; 80061; 81001; 82436; 82550; 82553; 82570; 83735; 83930; 83935; 84133; 84300; 84484; 85025; 85379; 87040; 93005; 93010; 96374; 96375; J1650; J3475; J3480; J7040